=== PATIENT | female | born 1990 | race Asian ===

== ENCOUNTER 2023-08-09 08:24 | Inpatient (IN) | payer OTHER, SELFPAY ==
[2023-08-09 08:44] VITALS: BMI 26.6
[2023-08-09 09:04] VITALS: BP 114/82
[2023-08-09 11:39] LABS: % Basophils 0.3 % (0-2); % Eosinophils 0.3 % (0-6); % Immature Granulocytes 0.2 % (0-0.5); % Lymphocytes 14.4 % (20.5-51.1); % Monocytes 8.3 % (1.7-9.3); % Neutrophils 76.5 % (42.2-75.2); Absolute Lymphocytes 1.2 10^3/uL (1.2-3.4); Absolute Monocytes 0.7 10^3/uL (0.1-0.6); Absolute Neutrophils 6.6 10^3/uL (1.4-6.5); Hematocrit 42.1 % (37.0-47.0); Hemoglobin 13.9 g/dL (12.0-16.0); Mean Corpuscular Hgb 26.4 pg (27.0-31.0); Mean Corpuscular Volume 79.9 fL (81.0-99.0); Mean Platelet Volume 11.3 fL (7.4-10.4); Nucleated Red Blood Cells % 0 %; Platelet Count 214 10^3/uL (130-400); Red Blood Cell Count 5.27 10^6/uL (4.20-5.40); White Blood Cell Count 8.6 10^3/uL (4.8-10.8)
[2023-08-09] MEDS: CYTOTEC 50 MICROGRAM VAG (11:49)
[2023-08-09] MEDS: MORPHINE SULFATE 2 MG IV (23:31)
[2023-08-09] MEDS: PHENERGAN 50.5 MG IV (23:31)
[2023-08-09] MEDS: CYTOTEC VAG (23:46)
[2023-08-10] MEDS: LR 1000 IV ×3 (01:59→18:44)
[2023-08-10] MEDS: MORPHINE SULFATE 2 MG IV ×2 (02:00→04:29)
[2023-08-10] MEDS: PITOCIN 30 UNITS/NSS 500 ML IV (09:45)
[2023-08-10] MEDS: SUBLIMAZE 100 MCG EPIDURAL (11:59)
[2023-08-10] MEDS: FENTANYL/BUPIVACAINE 100 EPIDURAL ×2 (12:01→18:44)
[2023-08-11] MEDS: LR 1000 IV ×2 (01:18→10:19)
[2023-08-11] MEDS: FENTANYL/BUPIVACAINE 100 EPIDURAL ×2 (02:15→09:49)
[2023-08-11] MEDS: ZITHROMAX INFUSION 250 IV (16:54)
[2023-08-11] MEDS: ANCEF 10 IV (16:54)
[2023-08-11] MEDS: BICITRA 30 ML PO (16:55)
[2023-08-11] MEDS: TYLENOL 1000 MG PO (16:55)
[2023-08-11 17:43] LABS: Cord ABG Comment CORD BLOOD
[2023-08-11 17:46] LABS: B.E. Cord ABG -8.2 mMOL/L; HCO3 Cord ABG 21.4 mmol/L; O2 Saturation % Cord ABG 5.8 %; PCO2 Cord ABG 60 mmHg; PO2 Cord ABG < 6 mmHg; pH Cord ABG 7.16
[2023-08-11 17:49] LABS: B.E. Cord ABG -7.9 mMOL/L; HCO3 Cord ABG 20.1 mmol/L; O2 Saturation % Cord ABG 11.8 %; PCO2 Cord ABG 49 mmHg; PO2 Cord ABG 9 mmHg; pH Cord ABG 7.22
[2023-08-11] MEDS: PITOCIN 30 UNITS/NSS 500 ML IV (21:27)
[2023-08-11] MEDS: TORADOL 15 MG IV (23:20)
[2023-08-12 04:47] LABS: Hematocrit 32.7 % (37.0-47.0); Hemoglobin 11.3 g/dL (12.0-16.0); Mean Corp Hgb Conc. 34.6 g/dL (33.0-37.0); Mean Corpuscular Hgb 26.9 pg (27.0-31.0); Mean Corpuscular Volume 77.9 fL (81.0-99.0); Mean Platelet Volume 10.5 fL (7.4-10.4); Platelet Count 153 10^3/uL (130-400); Red Cell Dist. Width 18.3 % (11.5-14.5); White Blood Cell Count 20.7 10^3/uL (4.8-10.8)
[2023-08-12] MEDS: TORADOL 15 MG IV ×3 (04:53→17:15)
[2023-08-12] MEDS: PRENATAL PLUS 1 TABLET PO (07:39)
[2023-08-12] MEDS: SENOKOT-S 1 TABLET PO (07:39)
[2023-08-12] MEDS: TYLENOL 650 MG PO (07:44)
--- NOTE | 2023-08-12 08:04 | W.PN.ANS.POP ---
Anesthesia Post Operative
- Anesthesia Post Op Note
Vital Signs Stable-See Nursing Note: Yes
Airway Patent: Yes
Adequate Pain Control: Yes
Change in Mental Status: No
Current Postoperative Nausea & Vomiting: No
Anesthesia Complications: No
General Anesthetic Recall: No
Unplanned Admission: No
Post Op Hydration Adequate: Yes
[2023-08-12] MEDS: MOTRIN 600 MG PO (23:45)
[2023-08-13] MEDS: PRENATAL PLUS 1 TABLET PO (08:31)
[2023-08-13] MEDS: TYLENOL 650 MG PO ×3 (08:31→21:15)
[2023-08-13] MEDS: SENOKOT-S 1 TABLET PO (08:32)
[2023-08-13] MEDS: MOTRIN 600 MG PO ×3 (08:32→21:15)
[2023-08-14] MEDS: TYLENOL 650 MG PO ×2 (04:11→08:29)
[2023-08-14] MEDS: MOTRIN 600 MG PO (04:11)
[2023-08-14] MEDS: PRENATAL PLUS 1 TABLET PO (08:29)
[2023-08-14] MEDS: SENOKOT-S 1 TABLET PO (08:29)
--- NOTE | 2023-08-14 13:30 | W.DS.TRANS ---
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
-
Discharge Instructions:
Discharge Diagnosis/Procedures delivered by csection; nonreassuring
heart rate
Diet Regular
Activity No strenuous activity
Driving Restrictions No driving for 2 weeks
Bathing Restrictions OK to Shower
Instructions:
Stand-Alone Forms:
Changes to Home Medications: No
Discharge Medications:
DC Medications w/original date entered in [employer]
1 tab PO DAILY 08/09/23
acetaminophen 325 mg tablet 650 mg PO Q4HPRN PRN mild pain #0 tabs 08/14/23
ibuprofen 600 mg tablet 600 mg PO Q6HPRN PRN cramps #0 tabs 08/14/23
Home Medication Changes
Pending Results: Yes
Additional Pending Results:
placental path
Total time spent discharging patient (in min): 25
[2023-08-15 15:31] LABS: Syphilis/T. pallidum Ab Reflex Negative (Negative)
== END 2023-08-14 15:06 | disposition home or self-care (01) | DRG 788 ==
LOC: LDRP 08:24
PROVIDERS: Obstetrics & Gynecology; ADMITTING PHYSICIAN Obstetrics & Gynecology; REFERRING PHYSICIAN Obstetrics & Gynecology
PROC: 3E0P7VZ Introduction of Hormone into Female Reproductive, Via Natural or Artificial Opening (ICD-10-PCS; 2023-08-09)
PROC: 0HQ9XZZ Repair Perineum Skin, External Approach (ICD-10-PCS; 2023-08-11)
PROC: 10D00Z1 Extraction of Products of Conception, Low, Open Approach (ICD-10-PCS; 2023-08-11)
DX: O48.0 Post-term pregnancy (principal); Z37.0 Single live birth; Z3A.41 41 weeks gestation of pregnancy; O76 Abnormality in fetal heart rate and rhythm complicating labor and delivery; O70.0 First degree perineal laceration during delivery
CPT/HCPCS: 88307; 36415; 82803; 85025; 85027; 86780; 86850; 86900; 86901